=== PATIENT | female | born 1975 | race Caucasian/White ===

== ENCOUNTER 2023-03-18 13:55 | Emergency (ER) | payer MEDICAID ==
[2023-03-18] MEDS ORDERED: Methocarbamol 500 MG Tab PO ONE (15:03)
[2023-03-18] MEDS ORDERED: Ondansetron 4 MG Tab.DIS PO ONE (15:20)
== END 2023-03-18 16:43 | disposition home or self-care (01) ==
LOC: JP.ED 13:55
DX: S80.01XA Contusion of right knee, initial encounter (principal); S09.90XA Unspecified injury of head, initial encounter; J45.909 Unspecified asthma, uncomplicated; Z72.0 Tobacco use; Z91.011 Allergy to milk products; Z91.040 Latex allergy status; W18.09XA Striking against other object with subsequent fall, initial encounter; X50.1XXA Overexertion from prolonged static or awkward postures, initial encounter
CPT/HCPCS: 70450; 72125; 76377; 99284; A9270; Q0162; 99282

== ENCOUNTER 2024-09-19 20:36 | Emergency (ER) | payer MEDICAID ==
[2024-09-19] MEDS: Ketorolac 30 MG/ML SDV IM ONE (21:37)
[2024-09-19 21:45] LABS: BASOPHILS PERCENT AUTO 0.2 % (0.1-1.3); EOSINOPHILS ABSOLUTE AUTO 0.15 K/uL (0.00-0.40); EOSINOPHILS PERCENT AUTO 1.9 % (0.0-5.4); HEMATOCRIT 41.2 % (34.3-46.0); HEMOGLOBIN 13.4 g/dL (11.2-15.5); IMMATURE GRAN ABSOLUTE AUTO 0.03 K/uL (0.00-0.23); IMMATURE GRAN PERCENT AUTO 0.4 % (0.0-0.7); LYMPHOCYTES ABSOLUTE AUTO 2.56 K/uL (0.8-3.3); LYMPHOCYTES PERCENT AUTO 31.9 % (11.4-47.7); MEAN CORPUSCULAR HEMOGLOBIN 29.1 pg (31.6-35.5); MEAN CORPUSCULAR HGB CONC 32.5 g/dL (31.6-35.5); MEAN CORPUSCULAR VOLUME 89.4 fL (81.4-99.0); MONOCYTES ABSOLUTE AUTO 0.62 K/uL (0.20-0.90); MONOCYTES PERCENT AUTO 7.7 % (3.3-12.6); NEUTROPHILS ABSOLUTE AUTO 4.64 K/uL (1.0-7.6); NEUTROPHILS PERCENT AUTO 57.9 % (40.0-78.1); PLATELET COUNT,PLT 179 K/uL (130-375); RED BLOOD CELL COUNT 4.61 M/uL (3.77-5.24)
[2024-09-19 21:47] LABS: BASOPHILS ABSOLUTE AUTO 0.02 K/uL (0.00-0.10)
== END 2024-09-19 23:20 | disposition home or self-care (01) ==
LOC: JP.ED 20:36
DX: R07.89 Other chest pain (principal); J45.909 Unspecified asthma, uncomplicated; Z91.011 Allergy to milk products; Z91.040 Latex allergy status; Z79.899 Other long term (current) drug therapy
CPT/HCPCS: 36415; 71046; 84484; 85025; 85379; 86140; 93005; 96372; 99284; J1885; 93010